=== PATIENT | female | born 1985 | race Caucasian/White ===

== ENCOUNTER 2023-07-28 13:06 | Emergency (ER) | payer MEDICAID, OTHER ==
[~2023-07-28] VITALS: Ht 170.2 cm; Wt 142.4 kg
[2023-07-28 13:11] VITALS: O2SAT 98
[2023-07-28 13:53] LABS: BASOPHILS % 0.5 % (0.0-2.0); EOSINOPHILS % 0.7 % (0.0-5.0); HEMATOCRIT. 42.3 % (36.0-48.0); LYMPHOCYTES % 25.9 % (20.0-50.0); MEAN CORPUSCULAR HGB CONC 33.1 g/dL (31.0-37.0); MEAN CORPUSCULAR VOLUME 84.5 fL (81.0-99.0); MEAN PLATELET VOLUME 9.3 fl (7.4-10.4); MONOCYTES % 9.2 % (2.0-8.0); NEUTROPHILS % 63.7 % (40.0-76.0); PLATELET 258 x1000/uL (130-400); RED CELL DISTRIBUTION WIDTH 14.2 % (11.6-14.6); WHITE BLOOD COUNT 8.6 x1000/uL (4.5-11.0)
[2023-07-28 14:07] LABS: ALANINE AMINOTRANSFERASE 31 IU/L (10-49); ALBUMIN 4.7 g/dL (3.2-4.8); ASPARTATE AMINOTRANSFERASE 25 IU/L (<34); BILIRUBIN TOTAL 0.4 mg/dL (0.1-1.0); CALCIUM 9.1 mg/dL (8.7-10.4); CARBON DIOXIDE 27 mEq/L (21-32); CHLORIDE 108 mEq/L (98-107); CREATININE 0.9 mg/dL (0.6-1.0); GLUCOSE 110 mg/dL (70-105); POTASSIUM 3.9 mEq/L (3.5-5.1); PROTEIN TOTAL 7.9 g/dL (6.0-8.3); SODIUM 143 mEq/L (136-145); UREA NITROGEN BLOOD 13 mg/dL (9-23)
[2023-07-28 14:40] LABS: TROPONIN I HIGH SENSITIVITY 5 ng/L (3.0-34)
[2023-07-28 14:43] LABS: D-DIMER 0.22 mg/L FEU (<0.50); INR 0.9; PARTIAL THROMBOPLASTIN TIME 26.7 sec (23.4-31.0); PROTHROMBIN TIME 10.4 sec (9.6-11.0)
[2023-07-28 14:46] LABS: HCG SCREEN NEGATIVE
[2023-07-28] MEDS: SODIUM CHLORIDE 0.9% 1,000 ML IV ONE (15:00)
[2023-07-28] MEDS: ACETAMINOPHEN 325MG TABLET PO ONE (15:00)
[2023-07-28] MEDS: MECLIZINE 25MG TABLET PO ONE (15:11)
[2023-07-28 16:37] LABS: TROPONIN I HIGH SENSITIVITY 5 ng/L (3.0-34)
[2023-07-28 17:26] VITALS: BP 131/86; PULSE 85; RESP 14; TEMP 98.3
== END 2023-07-28 17:30 | disposition home or self-care (01) ==
LOC: ER 13:06
DX: R42 Dizziness and giddiness (principal); I10 Essential (primary) hypertension; D64.89 Other specified anemias
CPT/HCPCS: 99285; 96360; 70450; 71045; 80053; 84703; 83880; 85025; 85379; 85610; 85730; 84484; 36415; 93005; J8597; J7030